=== PATIENT | male | born 2000 | race Caucasian/White ===

== ENCOUNTER 2020-01-09 20:25 | Emergency (ER) | payer OTHER ==
[~2020-01-09] VITALS: Ht 180.3 cm; Wt 77.1 kg
[2020-01-09 20:30] VITALS: BP_SYST 142
[2020-01-09 21:08] VITALS: BP_SYST 142
== END 2020-01-09 21:08 | disposition home or self-care (01) ==
LOC: SED 20:25
DX: H10.211 Acute toxic conjunctivitis, right eye (principal)
CPT/HCPCS: 99283

== ENCOUNTER 2020-09-26 15:53 | Emergency (ER) | payer SELFPAY ==
[~2020-09-26] VITALS: Ht 180.3 cm; Wt 76.2 kg
--- NOTE | 2020-09-26 15:58 | NUR ---
pPatient to ER bed 5 to gown for evaluation. Side rails up.
[2020-09-26 16:00] VITALS: BP_SYST 135
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
--- NOTE | 2020-09-26 16:07 | NUR ---
SADAF Ramos at bedside examining patient.
--- NOTE | 2020-09-26 16:20 | NUR ---
# 20 gauge angiocath placed to RAC. Use of asceptic technique. Opsite placed over site. Blood return noted. Blood for lab drawn from site. Flushed with 10 cc of normal saline. No evidence of infiltration noted. Patient tolerated well.
--- NOTE | 2020-09-26 16:22 | NUR ---
CT consent reviewed and signed by pt.
--- NOTE | 2020-09-26 16:25 | NUR ---
Pt ambulated to the restroom for a urine specimen.
--- NOTE | 2020-09-26 16:30 | NUR ---
Urine and blood collected and sent to lab.
[2020-09-26 16:37] LABS: BILIRUBIN,URINE NEGATIVE (NEGATIVE); BLOOD, URINE NEGATIVE (NEGATIVE); CLARITY/URINE CLEAR (CLEAR); COLOR,URINE YELLOW (YELLOW); GLUCOSE,URINE NEGATIVE (NEGATIVE); KETONES,URINE NEGATIVE (NEGATIVE); LEUKOCYTE ESTERASE ,URINE NEGATIVE (NEGATIVE); NITRITE, URINE NEGATIVE (NEGATIVE); PROTEIN URINE NEGATIVE (NEGATIVE)
--- NOTE | 2020-09-26 16:37 | NUR ---
Patient transported to radiology via ambulatory, accompanied by tech.
[2020-09-26 16:51] LABS: BARBITURATE, URINE NEGATIVE (NEG <=200); BENZODIAZEPINE, URINE NEGATIVE (NEG <=150); CANNABINOID, URINE NEGATIVE (NEG <=50); COCAINE, URINE NEGATIVE (NEG <=150); METHAMPHETAMINES SCREEN,URINE NEGATIVE (NEG <=500); OPIATE, URINE NEGATIVE (NEG <=100); PHENCYCLIDINE SCREEN,URINE NEGATIVE (NEG <=25); UR TRICYCLIC ANTIDEPRESSANTS NEGATIVE (NEG <=300); URINE AMPHETAMINE NEGATIVE (NEG <=500); URINE METHADONE NEGATIVE (NEG <=200); URINE OXYCODONE SCREEN POSITIVE (NEG <=100); URINE PROPOXYPHENE SCREEN NEGATIVE (NEG <=300)
[2020-09-26 16:53] LABS: BASOPHILS # (AUTO) 0.1 K/uL (0.0-0.2); BASOPHILS % (AUTO) 0.7 % (0.0-2.0); EOSINOPHILS # (AUTO) 0.1 K/uL (0.0-0.4); EOSINOPHILS % (AUTO) 1.4 % (0.0-4.0); HEMATOCRIT 41.3 % (36-54); HEMOGLOBIN 13.6 g/dL (14.0-18.0); LYMPHOCYTES # (AUTO) 2.9 K/uL (1.0-5.5); LYMPHOCYTES % (AUTO) 35.9 % (20.5-51.5); MEAN CORPUSCULAR HEMOGLOBIN 29 pg (27-31); MEAN CORPUSCULAR HGB CONC 33 % (32-36); MEAN CORPUSCULAR VOLUME 88 fL (79.0-98.0); MONOCYTES # (AUTO) 0.6 K/uL (0.0-1.0); MONOCYTES % (AUTO) 7.5 % (1.7-9.3); NEUTROPHILS # (AUTO) 4.4 K/uL (1.8-7.7); NEUTROPHILS % (AUTO) 54.5 % (40.0-70.0); PLATELET COUNT (AUTO) 231 K/uL (130-430); RED BLOOD CELL COUNT(AUTO) 4.69 MIL/uL (4.2-6.2); RED CELL DISTRIBUTION WIDTH 12.4 % (9.0-15.0); WHITE BLOOD COUNT (AUTO) 8.1 K/uL (4.5-11.0)
--- NOTE | 2020-09-26 16:53 | NUR ---
Back from CT resting in [facility].
[2020-09-26 16:59] LABS: ANION GAP 8 (5-15); CHLORIDE 105 mmol/L (98-107); CREATININE 1.03 mg/dL (0.55-1.30); GLUCOSE 93 mg/dL (70-99); POTASSIUM 3.5 mmol/L (3.5-5.1); SODIUM SERUM 140 mmol/L (136-145); UREA NITROGEN, BLOOD 15 mg/dL (8-21)
[2020-09-26 17:05] LABS: ALANINE AMINOTRANSFERASE 23 U/L (12-78); ALBUMIN 4.1 g/dL (3.4-4.8); ASPARTATE AMINOTRANSFERASE 21 U/L (10-37); GFR AFRICAN AMERICAN 120 mL/min (>90); TOTAL BILIRUBIN 0.8 mg/dL (0.0-1.0)
[2020-09-26 17:06] LABS: ALCOHOL, BLOOD < 3 mg/dL (<10)
[2020-09-26] MEDS ORDERED: IBUP-1969 PO (17:40)
[2020-09-26 17:52] VITALS: BP_SYST 135
--- NOTE | 2020-09-26 17:52 | NUR ---
Patient given written and verbal discharge instructions and verbalizes understanding. ER MD discussed with patient the results and treatment provided. Patient in stable condition. ID arm band removed. IV catheter removed intact and dressing applied, no active bleeding. Rx of Ibuprofen given. Patient educated on pain management and to follow up with PMD. Pain Scale 0/10. Opportunity for questions provided and answered. Medication side effect fact sheet provided.
== END 2020-09-26 17:52 | disposition home or self-care (01) ==
LOC: SED 15:53
DX: S50.12XA Contusion of left forearm, initial encounter (principal); S50.11XA Contusion of right forearm, initial encounter; S20.213A Contusion of bilateral front wall of thorax, initial encounter; Z79.899 Other long term (current) drug therapy; V47.5XXA Car driver injured in collision with fixed or stationary object in traffic accident, initial encounter; Y93.89 Activity, other specified; Y92.89 Other specified places as the place of occurrence of the external cause; Y99.8 Other external cause status
CPT/HCPCS: 36415; 71260; 76376; 80053; 80307; 81003; 85025; 85730; 86886; 86900; 86901; 99285; G0482; Q9967